=== PATIENT | female | born 1970 | race Caucasian/White ===

== ENCOUNTER 2018-07-07 17:38 | Emergency (ER) | payer BC, SELFPAY ==
[2018-07-07] VITALS (11 sets, daily range): BP systolic 114–140; BP diastolic 76–92; PULSE 76–94; RESP 13–23; TEMP 36.7; O2SAT 95–100; BMI 36.3
--- NOTE | 2018-07-07 18:32 | RAD_ITS ---
STUDY: X-RAY - PELVIS REASON FOR EXAM: Female, 47 years old. Pain of the pelvis after falling. TECHNIQUE: One view of the pelvis was obtained. COMPARISON: None. FINDINGS: There is a non-specific bowel gas pattern. Normal visualized soft tissue structures. Asymmetric distal sacral ala on the right side. Normal visualized bilateral superior and inferior pubic rami. Degenerative changes of the symphysis pubis. Normal ischial tuberosities. Normal visualized right femoral head. Normal right acetabulum. Normal right hip joint. Normal visualized left femoral head. Normal left acetabulum. Normal left hip joint. RAD/Pelvis 1 or 2 Views IMPRESSION: Asymmetry of the most distal sacral earline on the right side. Anatomic variation versus disruption by fracture. Otherwise negative for pelvic or hip fracture. Electronically Signed: Melanie Lorenzo MD at 20:00 EDT , Service support ,
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
[2018-07-07] MEDS: 0.9% Normal Saline 1,000 ML 150 ML IV (18:59)
[2018-07-07] MEDS: Orphenadrine 60 MG/2 ML Ampul IM (19:00)
[2018-07-07] MEDS: Morphine 4 MG/ML Syringe IV ×2 (19:00→21:24)
[2018-07-07] MEDS: Ondansetron 4 MG/2 ML Vial IV ×2 (19:00→21:23)
[2018-07-07 19:19] LABS: Absolute Lymphocyte Count 2.09 X10^3/ul (0.83-4.51); Absolute Neutrophil Count 9.2 X10^3/uL (2.0-7.7); Basophil# 0.01 X10^3/uL; Basophil% 0.1 % (0-1); Eosinophil# 0.19 X10^3/uL; Eosinophils% 1.5 % (0-5); Hematocrit 40.7 % (37-47); Hemoglobin 13.2 g/dl (12.0-15.0); Lymphocyte # 2.09 X10^3/ul (4.0); Lymphocyte % 16.6 % (19-41); Mean Corp Hgb Conc 32.4 g/gl (32-36); Mean Corpuscular Hgb 28.4 pg (27.0-32.0); Mean Corpuscular Volume 87.5 fL (81-99); Mean Platelet Vol. 10.1 fl (6.2-12.0); Monocyte# 1.04 X10^3/uL; Monocyte% 8.3 % (0-10); Neutrophil # 9.24 X10^3/uL (2.7-7.7); Neutrophil % 73.3 % (47-70); Platelet Count 297 K/mm3 (150-450); RBC Distribution Width CV 12.9 % (11.6-14.6); RBC Distribution Width SD 40.9 fl (35.1-43.9); Red Blood Count 4.65 M/mm3 (4.2-5.4); White Blood Count 12.6 K/mm3 (4.4-11.0)
[2018-07-07 19:23] LABS: POSITIVE COUNT NO; POSITIVE DIFFERENTIAL NO; POSITIVE MORPHOLOGY NO
--- NOTE | 2018-07-07 19:24 | RAD_ITS ---
STUDY: X-RAY - RIGHT RADIUS AND ULNA REASON FOR EXAM: Female, 47 years old. Trauma TECHNIQUE: 2 view(s) of the forearm. COMPARISON: None. FINDINGS: There is no demonstrated soft tissue swelling. Normal visualized radius. Normal visualized ulna. RAD/Forearm 2 Views IMPRESSION: Normal x-ray examination of the radius and ulna. Electronically Signed: Jeffrey De La Cruz MD at 19:51 EDT , Service support ,
[2018-07-07 19:29] LABS: Anion Gap 6 (5-15); BUN 11 mg/dL (7-18); BUN/Creat Ratio 12.2 RATIO (10-20); Calcium,Total 8.5 mg/dL (8.5-10.1); Chloride 108 mmol/L (98-107); EST Glomerular Filtration Rate 71 mL/min (>60); Est Glom Filt Rate - Afr Amer 85 mL/min (>60); Estimated Creatinine Clearance 71.56 ml/min; Glucose 88 mg/dL (74-106); Potassium 3.9 mmol/L (3.5-5.1); Sodium Level 137 mmol/L (136-145)
[2018-07-07 19:30] LABS: International Normalized Ratio 1.1; Prothrombin Time (Protime)PT. 13.7 SECONDS (11.7-14.9)
[2018-07-07 19:31] LABS: Partial Thromboplast Time 37.1 Seconds (24.1-36.2)
--- NOTE | 2018-07-07 20:11 | CT_ITS ---
STUDY: CT ABDOMEN AND PELVIS WITHOUT CONTRAST REASON FOR EXAM: Female, 47 years old. Trauma RADIATION DOSAGE (If Supplied By Facility): CTDIvol = ( 16.09 ) mGy, DLP = ( 824.09 ) mGycm TECHNIQUE: Transaxial images were obtained from the dome of the diaphragm to the symphysis pubis without oral contrast, and without intravenous contrast. Sagittal and coronal images were reconstructed. Individualized dose optimization techniques were used for this CT. COMPARISON: None. FINDINGS: This trauma study is technically limited, being performed without intravenous contrast. There is a small calcified granuloma of the posterior left lung base. The visualized portions of the heart are within normal limits. Normal liver. There are surgical clips in the gallbladder fossa consistent with a prior cholecystectomy. Normal spleen. Normal pancreas. Normal bilateral adrenal glands. Normal right kidney. Normal left kidney. Normal visualized stomach. Normal small intestine. Normal colon. There are surgical clips in the region of the appendix consistent with a prior appendectomy. Normal abdominal aorta. Normal inferior vena cava. Normal retroperitoneum. Normal urinary bladder. The uterus appears normal. There are bilateral tubal ligation clips. Normal abdominal wall. There is a mild lumbar levoscoliosis. CT/Abdomen/Pelvis without Cont IMPRESSION: 1. Small calcified granuloma the posterior left lung base. 2. Status post cholecystectomy and appendectomy. 3. Bilateral tubal ligation clips are present. 4. There is no evidence of free intra-abdominal or intrapelvic air, fluid, or inflammatory process. There is no evidence of hepatic, splenic, or renal laceration or hematoma. Electronically Signed: Jeffrey De La Cruz MD at 21:33 EDT , Service support ,
--- NOTE | 2018-07-07 20:12 | CT_ITS ---
STUDY: CT RIGHT KNEE WITHOUT CONTRAST REASON FOR EXAM: Female, 47 years old. Fall. Right knee and hip pain. RADIATION DOSAGE (If Supplied By Facility): CTDIvol = ( 15.35 ) mGy, DLP = ( 476.57 ) mGycm TECHNIQUE: Transaxial CT imaging of the knee was performed. Coronal and sagittal images were reformatted. Individualized dose optimization techniques were used for this CT. COMPARISON: None. FINDINGS: There is complete lateral dislocation of the patella. There is a small cortical impaction fracture of the posterolateral tibial plateau, seen on series 601, images 27-29. No additional fracture is demonstrated. There is a moderate-sized joint hemarthrosis. Edema of the anterior subcutaneous tissues is noted. Muscle architecture is normal. CT/Extremity Lower without Contra IMPRESSION: 1. Lateral dislocation of the patella. 2. Small cortical impaction fracture of the posterolateral tibial plateau. 3. Joint hemarthrosis. Electronically Signed: Steph Xavier MD at 21:46 EDT Tel , Service support ,
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
[2018-07-07] MEDS: HYDROmorphone 0.5 MG/0.5 ML SYRINGE IV (22:16)
[2018-07-07] MEDS: Propofol 200 MG/20 ML Vial IV BOLUS (22:42)
--- NOTE | 2018-07-07 22:45 | RAD_ITS ---
STUDY: X-RAY - RIGHT KNEE REASON FOR EXAM: Female, 47 years old. Post reduction right knee TECHNIQUE: 2 view(s) of the knee. COMPARISON: Prior study of 07/07/2018 FINDINGS: Osseous details partially obscured by splint material. Normal visualized distal femur. Normal visualized proximal tibia and fibula. Normal proximal tibiofibular articulation. Normal medial femorotibial compartment. Normal lateral femorotibial compartment. Normal patellofemoral articulation. The soft tissue structures are unremarkable. RAD/Knee 1 or 2 Views IMPRESSION: Normal x-ray examination of the knee. There has been interval reduction of previously reported patellar dislocation. A cortical impaction fracture of the posterolateral tibial plateau reported on the preceding CT study is not appreciated on this plain film study. Electronically Signed: Jeffrey De La Cruz MD at 23:00 EDT , Service support ,
--- NOTE | 2018-07-07 23:11 | ED.DEP ---
ED Disposition - Plan for ED Patient: Disposition: Home or Assisted Living Chief Complaint: Fall Instructions: ED Mechanical Fall, ED Dislocation Patella, ED Fx Knee, ED Immobilizer Knee Prescriptions: Oxycodone HCl/Acetaminophen [Percocet 5/325] 1 tablet PO Q6H PRN PRN 5 Days #20 tablet PRN Reason: Pain Ondansetron [Zofran Odt] 4 mg PO Q8H PRN PRN #10 tablet PRN Reason: Nausea Referrals: Ross Bueno DO [STAFF PHYSICIAN] - 5-7 Days
[2018-07-07] MEDS: Ondansetron ODT 4 MG Tablet PO (23:28)
[2018-07-07] MEDS: oxyCODONE 5 MG Tablet PO (23:29)
== END 2018-07-07 23:47 | disposition home or self-care (01) ==
PROVIDERS: Emergency Provider Emergency Medicine; Family Provider Internal Medicine; PCP Internal Medicine
DX: S83.014A Lateral dislocation of right patella, initial encounter (principal); S82.141A Displaced bicondylar fracture of right tibia, initial encounter for closed fracture; S50.311A Abrasion of right elbow, initial encounter; S50.01XA Contusion of right elbow, initial encounter; M25.061 Hemarthrosis, right knee; V89.9XXA Person injured in unspecified vehicle accident, initial encounter; Y93.9 Activity, unspecified; Y92.9 Unspecified place or not applicable
CPT/HCPCS: 27560; 72170; 73090; 73552; 73560; 73590; 73700; 74176; 80048; 85025; 85610; 85730; 96361; 96372; 96374; 96375; 96376; 99152; 99285; J7030; A4216; J2405

== ENCOUNTER → 2018-09-18 08:29 | Outpatient (CLI) | payer BC, SELFPAY ==
[2018-07-07 17:39] VITALS: BMI 36.3
--- NOTE | 2018-09-18 08:41 | EKG12_ITS ---
Test Reason : PRE-OP Blood Pressure : / mmHG Vent. Rate : 068 BPM Atrial Rate : 068 BPM P-R Int : 152 ms QRS Dur : 076 ms QT Int : 396 ms P-R-T Axes : 027 -07 010 degrees QTc Int : 421 ms Normal sinus rhythm with sinus arrhythmia Confirmed by ADELIA SANTOYO, JASMIN ([id number]), pictures editor BEATA LEPE ([id number]) on 09/21/2018 1:36:48 PM Referred By: Charles Silva Confirmed By:JASMIN DELVALLE MD
[2018-09-18 09:08] LABS: Hemoglobin 12.7 g/dl (12.0-15.0); Mean Corpuscular Hgb 27.7 pg (27.0-32.0); Mean Corpuscular Volume 89.5 fL (81-99); Mean Platelet Vol. 9.7 fl (6.2-12.0); Platelet Count 310 K/mm3 (150-450); RBC Distribution Width SD 41.9 fl (35.1-43.9); Red Blood Count 4.58 M/mm3 (4.2-5.4); White Blood Count 12.5 K/mm3 (4.4-11.0)
[2018-09-18 09:09] LABS: Scan Indicated on CBC? Y/N NO
[2018-09-18 09:34] LABS: Anion Gap 7 (5-15); BUN 13 mg/dL (7-18); BUN/Creat Ratio 15.9 RATIO (10-20); Calcium,Total 8.9 mg/dL (8.5-10.1); Chloride 106 mmol/L (98-107); Creatinine, Serum 0.82 mg/dL (0.55-1.02); EST Glomerular Filtration Rate 79 mL/min (>60); Est Glom Filt Rate - Afr Amer 96 mL/min (>60); Glucose 81 mg/dL (74-106); Potassium 3.9 mmol/L (3.5-5.1); Sodium Level 139 mmol/L (136-145)
== END ==
PROVIDERS: Family Provider Internal Medicine; PCP Internal Medicine; Referring Provider Physician Assistant; Visit Provider Physician Assistant
DX: Z01.810 Encounter for preprocedural cardiovascular examination (principal); Z01.818 Encounter for other preprocedural examination
CPT/HCPCS: 36415; 80048; 85027; 93005

== ENCOUNTER 2022-03-26 09:54 | Day surgery (SDC) | payer OTHER, SELFPAY ==
[2022-03-26] VITALS (7 sets, daily range): BP systolic 127–143; BP diastolic 70–82; PULSE 66–83; RESP 16–18; TEMP 36.6–36.9; O2SAT 96–98; BMI 32.0
[2022-03-26] MEDS: Lactated Ringers 1,000 ML 15 ML IV (10:24)
[2022-03-26] MEDS: Lidocaine 1% (20 ml mdv) 20 ML Vial (11:46)
--- NOTE | 2022-03-26 11:50 | EMB_PTH ---
PATIENT: LETY CURRAN [place] [facility] [place][id number] AGE/SX: 51/F ROOM: RE03/26/[address]: Dr. Radha Miller DO : 1970 BED: DIS: 03/26/2022 SPEC #: [id number] RECD: 03/26/22 17:24 STATUS: ADRIANA INDRA #: [id number] SARBJIT: 03/26/22 11:[address]: Radha Miller DEPT: SURGICAL PATHOLOGY RECD BY: Emilia Lemon ENTERED: 03/30/22 10:08 SP TYPE: ENDOM BX/C DOROTHY DR: Dr. Ruth Best MD Tissues: Endometrium, NOS Procedures: Surgery Specimen Level IV HEADER OPERATION: Hysteroscopy, D & C PRE-OP DIAGNOSIS: Dysfunctional uterine bleeding TISSUE SUBMITTED: Endometrial curettings MICROSCOPIC DIAGNOSIS Endometrial curettings: Secretory endometrium. SJ:aneta 03/31/2022 MICROSCOPIC DESCRIPTION Slides are reviewed. GROSS DESCRIPTION Received in fixative is one container labeled with the patient's name and designated endometrial curettings. The specimen consists of multiple fragments of hemorrhagic soft tissue that in aggregate measure 5 x 3 x 0.2 cm. The entire specimen is submitted in two cassettes. / SJ:rg 03/30/2022 TC:4 CPT: 29192
--- NOTE | 2022-03-26 12:00 | DCINST_ITS ---
Discharge Instructions Diet Discharge Diet: No restrictions Activity Discharge Activity: May Drive (once you are 24 hours out from surgery) May resume sexual activity in: 1-2 weeks (no intercourse, tampons, hot tubs, baths, or pools for 1 week while bleeding) Weight Bearing Status: Weight bearing as tolerated Lifting Restrictions: none Dressing / Incision Call your doctor if you observe: Fever of 101 or Higher, Coldness, Increased Pain, Numbness or Tingling, Change in Color, Inability to urinate, Inability to have a bowel movement, Using more than 1 pad per hour, Shortness of breath, Dizziness, Fainting spells, Swelling in the ankles, Chest pain, Increased palpitations (irregular heartbeat), Calf discomfort and Uncontrolled pain Follow Up Care Please Follow Up With: Radha Miller DO When: 1-2 weeks Test Results: Test results from this visit will be discussed in further detail at your follow- up appointment, if applicable. Discharge Plan Admission Primary Reason for Your Visit: surgery Attending Provider: Radha Miller Primary Care Provider: Ruth Best Discharge Orders/Prescriptions Prescriptions: New ibuprofen 600 mg tablet 600 mg PO Q6H PRN (Reason: pain) Qty: 30 0RF Continued buspirone 5 mg tablet 5 mg PO TID Label Comments: TAKE 1 TABLET BY MOUTH THREE TIMES DAILY fluoxetine 20 mg capsule 20 mg PO DAILY Label Comments: TAKE 1 CAPSULE BY MOUTH ONCE DAILY Other Ambulatory Orders: ,Urine (Routine) Timeframe: 20220326 Facility: [facility] - Location: Laboratory Ordered By: Dr. Radha Miller Type & Screen - PAT ONLY (Routine) Timeframe: [id number] Facility: [facility] - Location: Laboratory Ordered By: Dr. Radha Miller Referrals / Follow Up: Ruth Best MD [Primary Care Provider] - Disposition Disposition (needs filled in before D/C Order can be placed): Home, Self Care
--- NOTE | 2022-03-26 12:01 | OP.PCM_ITS ---
Problems Associated Problem List Diagnoses (1) DUB (dysfunctional uterine bleeding): Report of Operation Date of Procedure: 03/26/22 Pre-Operative Diagnosis: DUB, polyp on biopsy Post-Operative Diagnosis: DUB, uterine septum Surgery/Procedure Performed:: Hysteroscopy, D&C Description of Surgical Findings:: No polyps or fibroids noted in the uterine cavity or in the cervix. There was a small septum noted at the fundus of the uterus. Bilateral tubal ostia were visualized. Endometrium was normal appearing. Minimal to no descent of uterus and cervix Surgeon: Radha Miller carry in worker: None Type of Anesthesia: MAC Special Medications: None Specimen's removed: Endometrial curettings Drains: None Estimated Blood Loss (mL): < 50 cc Fluids Replaced: 400 cc deficit Description of Procedure: She was taken to the operating room where MAC anesthesia was found to be adequate. She was prepped and draped in dorsal lithotomy position using yellowfin stirrups. A weighted speculum was placed in the vagina to expose the cervix. The anterior lip of the cervix was grasped with a single-tooth tenaculum. 1 cc of 1% lidocaine was injected into the cervix. The cervix was serially dilated to accommodate the Symphion hysteroscope. The Symphion hysteroscope was easily advanced into the uterus, and the uterine cavity was distended with normal saline. Bilateral tubal ostia were visualized. There was a small fundal septum noted within the uterus. No polyps or fibroids were noted within the uterine cavity. The endometrium was normal-appearing. Hysteroscope was slowly removed through the endocervical canal, no cervical polyps were noted. Hysteroscope was removed. A sharp curettage was performed for moderate mount of tissue. The endometrial curettings were sent to pathology for review. The IUD was not placed given the presence of the uterine septum. All instruments were removed from the vagina. Bleeding was hemostatic. Vaginal sweep was performed. Instrument and sponge counts were correct. The patient was taken to the recovery in stable condition. Grafts/Implants Used: None Procedure Start Time: 11:46 Procedure Stop Time: 11:56 Complications None Admit VTE Documentation VTE Present on Admission: No VTE Mechan Device Prophylaxis: SCD's
== END 2022-03-26 13:21 | disposition home or self-care (01) ==
LOC: SDC 09:59 → AC 10:00
PROVIDERS: PCP Internal Medicine; Referring Provider Obstetrics & Gynecology; Visit Provider Obstetrics & Gynecology
PROC: 0UB98ZZ Excision of Uterus, Via Natural or Artificial Opening Endoscopic (ICD-10-PCS; CPT 58558; principal; 2022-03-26 11:35)
DX: N93.8 Other specified abnormal uterine and vaginal bleeding (principal); F41.9 Anxiety disorder, unspecified; F32.A Depression, unspecified; K21.9 Gastro-esophageal reflux disease without esophagitis; Z79.899 Other long term (current) drug therapy; Q51.28 Other and unspecified doubling of uterus
CPT/HCPCS: 58558; 00952; 86850; 86900; 86901; 88305; J7120